=== PATIENT | female | born 1960 | race Caucasian/White ===

== ENCOUNTER 2025-10-10 19:44 | Emergency (ER) | payer BC ==
[~2025-10-10] VITALS: Ht 167.6 cm; Wt 64.0 kg
[2025-10-10] MEDS ORDERED: DEXAMETHASONE SOD PHOS 10 MG/ML VIAL IM ONE (23:45)
[2025-10-10] MEDS ORDERED: BUPIVACAINE 0.25% W/ EPI 30 ML SDV DENTAL ONE (23:45)
[2025-10-11] MEDS ORDERED: LIDODERM1 EACH TOP (00:31)
[2025-10-11 00:44] VITALS: BP 127/88
== END 2025-10-11 00:44 | disposition home or self-care (01) ==
LOC: ED 19:44
DX: G57.02 Lesion of sciatic nerve, left lower limb (principal); E03.9 Hypothyroidism, unspecified
CPT/HCPCS: 72131; 96372; 99283-25; J1100